=== PATIENT | male | born 1960 | race Caucasian/White ===

== ENCOUNTER 2016-10-08 04:55 | Emergency (ER) | payer OTHER ==
[2016-10-08] MEDS ORDERED: BENADRYL 50 MG/ML IV ONE (05:10)
[2016-10-08] MEDS ORDERED: MORPHINE SULFATE 10 MG/ML IV ONE (05:10)
[2016-10-08] MEDS ORDERED: Sodium Chloride 0.9% 1000 ML 1,000 ML IV STA (05:10)
[2016-10-08] MEDS ORDERED: BENADRYL 50 MG/ML ONE (05:13)
[2016-10-08] MEDS ORDERED: Sodium Chloride 0.9% 1000 ML 1,000 ML ONE (05:14)
[2016-10-08] MEDS ORDERED: MORPHINE SULFATE 10 MG/ML ONE (05:14)
[2016-10-08 05:19] LABS: BASOPHIL % 0.5 % (0.0-0.4); Eosinophil % 3.1 % (0.00-5.0); Lymphocytes % 31.2 % (24.0-44.0); Mean Cell Volume 92.7 fl (78-100); Mean Corpuscular Hemoglobin 31.1 pg (26-32); Mean Platelet Volume 10.2 fl (6-9.5); Monocytes % 8.2 % (0.0-12.0); Platelet Count 275 K/mm3 (150-450); Red Blood Count 4.63 M/mm3 (4.1-5.6); Red Cell Distribution Width 12.7 % (11.5-14.0); White Blood Count 11.1 K/mm3 (4.0-10.5)
--- NOTE | 2016-10-08 05:25 | ERPHSYRPT ---
- History of Present Illness Time Seen by Provider: 10/08/16 04:57 Historian: patient Patient Subjective Stated Complaint: Pt states since around noon yesterday he has been having left lower abdominal pain and it feels like he has to pee but does not empty his bladder. Triage Nursing Assessment: Pt alert and oriented x3. skin pink warm and dry. afebrile. denies any n/v. states his abdominal pain comes and goes Physician History: CC: left abd pain hx: 55 y/o patient with hx of high chol and DM and gout. He had sudden sharp intermittent pain in left side of abd. Increased urinary urgency and frequency. No fever or chills. No vomiting. No hx of kidney stone disease in the past. No chest pain. He broke out in sweat. Unable to sleep well due to the pain. Timing/Duration: yesterday (11AM) Severity of Pain-Max: severe Severity of Pain-Current: severe Allergies/Adverse Reactions: No Known Drug Allergies Allergy (Unverified 10/08/16 05:07) Home Medications: Metformin HCl 1000 mg [Glucophage 1000 MG] 1,000 mg PO BID 07/28/15 [History] Allopurinol 300 mg [Zyloprim 300 mg] 300 mg PO DAILY 10/08/16 [History] Rosuvastatin Calcium 10 mg PO HS 10/08/16 [History] Hx Tetanus, Diphtheria Vaccination/Date Given: Yes (5 years ago) Hx Influenza Vaccination/Date Given: No Hx Pneumococcal Vaccination/Date Given: No - Review of Systems Constitutional: Malaise, No Fever, No Chills Eyes: No Symptoms Ears, Nose, & Throat: No Symptoms Respiratory: No Cough, No Dyspnea Cardiac: No Chest Pain Abdominal/Gastrointestinal: Abdominal Pain (left sided), No Nausea, No Vomiting , No Diarrhea Genitourinary Symptoms: Flank Pain (left), No Dysuria, No Testicle Pain Musculoskeletal: Back Pain (left) Skin: No Rash Neurological: No Focal Weakness, No Headache, No Parasthesia All Other Systems: Reviewed and Negative - Past Medical History Pertinent Past Medical History: Yes Neurological History: No Pertinent History ENT History: No Pertinent History Cardiac History: High Cholesterol Respiratory History: No Pertinent History Endocrine Medical History: Diabetes Type II Musculoskeletal History: No Pertinent History GI Medical History: No Pertinent History History: No Pertinent History Psycho-Social History: No Pertinent History Male Reproductive Disorders: No Pertinent History Other Medical History: Gout - Past Surgical History Past Surgical History: Yes Gastrointestinal: Hernia Repair - Social History Smoking Status: Former smoker Exposure to second hand smoke: Yes Drug Use: none Patient Lives Alone: No - Nursing Vital Signs Nursing Vital Signs: Initial Vital Signs Temperature 97.7 F Temperature Source Oral Pulse Rate 77 Respiratory Rate 14 Blood Pressure [Right Arm] 127/83 Pain Intensity 1 - Physical Exam General Appearance: alert, obese, other (uncomfortable appearing) Eye Exam: PERRL/EOMI Ears, Nose, Throat Exam: normal ENT inspection, moist mucous membranes Neck Exam: normal inspection, non-tender, supple Respiratory Exam: normal breath sounds, lungs clear Cardiovascular Exam: regular rate/rhythm Gastrointestinal/Abdomen Exam: soft, tenderness (left), No distention, No mass, No guarding Male Genitalia Exam: normal genitalia, No testicular tenderness Back Exam: normal inspection, normal range of motion Extremity Exam: normal inspection, normal range of motion Neurologic Exam: alert, oriented x 3, 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, 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, sensation nml, No motor deficits Skin Exam: warm, dry, pale SpO2 Interpretation: normal SpO2: 96 - Course Nursing assessment & vital signs reviewed: Yes - CT Exams abd/pelvis CT Interpretation: Tele-radiologist Report (left hydro, left distal ureteral stone) Ordered Tests: Active Orders 24 hr Category Date Time Status IV Insertion STAT Care 10/08/16 05:10 Active ABDOMEN AND PELVIS W/0 CONTRAS [CT] Stat Exams 10/08/16 05:10 Taken BMP Stat Lab 10/08/16 05:16 Completed CBC W DIFF Stat Lab 10/08/16 05:16 Completed Lactic Acid Stat Lab 10/08/16 05:10 Completed UA W/ MICROSCOPIC Stat Lab 10/08/16 05:30 Completed Uric Acid Stat Lab 10/08/16 05:31 Completed Medication Summary Discontinued Medications Generic Name Dose Route Start Last Admin Trade Name Freq PRN Reason Stop Dose Admin Diphenhydramine HCl 25 mg 10/08/16 05:10 10/08/16 05:15 Benadryl 50 Mg/Ml IV 10/08/16 05:11 25 mg STAT ONE Administration Diphenhydramine HCl Confirm 10/08/16 05:13 Benadryl 50 Mg/Ml Administered 10/08/16 05:14 Dose 50 mg .ROUTE .STK-MED ONE Sodium Chloride 1,000 mls @ 999 mls/hr 10/08/16 05:10 10/08/16 05:15 Sodium Chloride 0.9% 1000 Ml IV 10/08/16 06:10 999 mls/hr .Q1H1M STA Administration Sodium Chloride Confirm 10/08/16 05:14 Sodium Chloride 0.9% 1000 Ml Administered 10/08/16 05:15 Dose 1,000 mls @ ud .ROUTE .STK-MED ONE Morphine Sulfate 5 mg 10/08/16 05:10 10/08/16 05:15 Morphine Sulfate 10 Mg/Ml IV 10/08/16 05:11 5 mg STAT ONE Administration Morphine Sulfate Confirm 10/08/16 05:14 Morphine Sulfate 10 Mg/Ml Administered 10/08/16 05:15 Dose 10 mg .ROUTE .STK-MED ONE Lab/Rad Data: Laboratory Result Diagrams 10/08/16 05:16 10/08/16 05:16 Laboratory Results 10/08/16 10/08/16 10/08/16 Range/Units 05:31 05:30 05:16 WBC (4.0-10.5) K/mm3 RBC (4.1-5.6) M/mm3 Hgb (12.5-18.0) gm/dl Hct (42-50) % MCV (78-100) fl MCH (26-32) pg MCHC (32-36) g/dl RDW (11.5-14.0) % Plt Count (150-450) K/mm3 MPV (6-9.5) fl Gran % (36.0-66.0) % Lymphocytes % (24.0-44.0) % Monocytes % (0.0-12.0) % Eosinophils % (0.00-5.0) % Basophils % (0.0-0.4) % Basophils # (0-0.4) Sodium 137 (136-145) mEq/L Potassium 3.9 (3.5-5.1) mEq/L Chloride 104 (98-107) mEq/L Carbon Dioxide 23.4 (21-32) mEq/L Anion Gap 13.6 (5-15) MEQ/L BUN 17 (9-20) mg/dL Creatinine 1.14 (0.55-1.30) mg/dl Estimated GFR > 60 ML/MIN Glucose 172 H (70-110) MG/DL Lactic Acid (0.4-2.0) Uric Acid 6.6 (3.5-7.2) mg/dL Calcium 9.4 (8.5-10.1) mg/dL Ur Collection Type CLEAN CATCH Urine Color YELLOW (YELLOW) Urine Appearance CLEAR (CLEAR) Urine pH 5.0 (5-6) Ur Specific [place] >=1.030 (1.005-1.025) Urine Protein NEGATIVE (Negative) Urine Glucose (UA) NEGATIVE (NEGATIVE) mg/dL Urine Ketones NEGATIVE (NEGATIVE) Urine Nitrite NEGATIVE (NEGATIVE) Urine Bilirubin NEGATIVE (NEGATIVE) Urine Urobilinogen 0.2 (0-1) mg/dL Urine WBC (Auto) NEGATIVE (NEGATIVE) Urine RBC (Auto) SMALL (0-5) Christian/ul Urine Microscopic RBC 2-5 (0-2) /HPF Urine Microscopic WBC 0-2 (0-5) /HPF Ur Epithelial Cells FEW (FEW) /HPF Urine Bacteria FEW (NEGATIVE) /HPF Urine Mucus SLIGHT (NEGATIVE) /HPF Specimen Received 10/08/16 0530 10/08/16 10/08/16 Range/Units 05:16 05:10 WBC 11.1 H (4.0-10.5) K/mm3 RBC 4.63 (4.1-5.6) M/mm3 Hgb 14.4 (12.5-18.0) gm/dl Hct 42.9 (42-50) % MCV 92.7 (78-100) fl MCH 31.1 (26-32) pg MCHC 33.6 (32-36) g/dl RDW 12.7 (11.5-14.0) % Plt Count 275 (150-450) K/mm3 MPV 10.2 H (6-9.5) fl Gran % 57.0 (36.0-66.0) % Lymphocytes % 31.2 (24.0-44.0) % Monocytes % 8.2 (0.0-12.0) % Eosinophils % 3.1 (0.00-5.0) % Basophils % 0.5 (0.0-0.4) % Basophils # 0.06 (0-0.4) Sodium (136-145) mEq/L Potassium (3.5-5.1) mEq/L Chloride (98-107) mEq/L Carbon Dioxide (21-32) mEq/L Anion Gap (5-15) MEQ/L BUN (9-20) mg/dL Creatinine (0.55-1.30) mg/dl Estimated GFR ML/MIN Glucose (70-110) MG/DL Lactic Acid 1.8 (0.4-2.0) Uric Acid (3.5-7.2) mg/dL Calcium (8.5-10.1) mg/dL Ur Collection Type Urine Color (YELLOW) Urine Appearance (CLEAR) Urine pH (5-6) Ur Specific [place] (1.005-1.025) Urine Protein (Negative) Urine Glucose (UA) (NEGATIVE) mg/dL Urine Ketones (NEGATIVE) Urine Nitrite (NEGATIVE) Urine Bilirubin (NEGATIVE) Urine Urobilinogen (0-1) mg/dL Urine WBC (Auto) (NEGATIVE) Urine RBC (Auto) (0-5) Christian/ul Urine Microscopic RBC (0-2) /HPF Urine Microscopic WBC (0-5) /HPF Ur Epithelial Cells (FEW) /HPF Urine Bacteria (NEGATIVE) /HPF Urine Mucus (NEGATIVE) /HPF Specimen Received - Progress Progress Note: 10/08/16 05:24 Pt voided small amount. Post void sono shows empty bladder. Left sided hydronephrosis. Will get CT to assess for stone disease. Counseled pt/family regarding: lab results, diagnosis, need for follow-up, rad results - Departure Time of Disposition: 06:36 Departure Disposition: Home Clinical Impression: Renal colic on left side, Left ureteral stone Condition: Stable Critical Care Time: No Referrals: SCOT RODRIGUEZ MD [Primary Care Provider] - Instructions: Kidney Stones Additional Instructions: Return for fever, uncontrolled pain, or recurrent vomiting. Rx norco for pain- no driving or operating machinery. Strain urine for stone. Follow up with Dr Trejo Monday. Prescriptions: Hydrocodone Bit/Acetaminophen [[place] 5-325 Tablet] 1 each PO Q6H PRN PRN #15 tablet PRN Reason: Pain
[2016-10-08 05:38] LABS: ANION GAP 13.6 MEQ/L (5-15); BLOOD UREA NITROGEN 17 mg/dL (9-20); CHLORIDE 104 mEq/L (98-107); Carbon Dioxide 23.4 mEq/L (21-32); Glucose 172 MG/DL (70-110); Potassium 3.9 mEq/L (3.5-5.1); SODIUM 137 mEq/L (136-145)
[2016-10-08 05:42] LABS: Bacteria FEW /HPF (NEGATIVE); COMPLETE URINE MICROSCOPIC? YES; Collection Type CLEAN CATCH; Epithelial Cells FEW /HPF (FEW); Mucus SLIGHT /HPF (NEGATIVE); WBC 0-2 /HPF (0-5)
[2016-10-08] MEDS ORDERED: MORPHINE SULFATE 4 MG INJ IV ONE (06:35)
[2016-10-08] MEDS ORDERED: MORPHINE SULFATE 4 MG INJ ONE (06:39)
[2016-10-08 07:11] VITALS: BP 124/85; PULSE 87; O2SAT 95
--- NOTE | 2016-10-08 08:32 | XRAY ---
Indication: Left lower quadrant abdominal pain. Renal stone. Multiple contiguous axial images obtained through the abdomen and pelvis without contrast using renal stone protocol. Comparison: None. Lung bases demonstrates minimal bibasilar atelectasis/scarring. Heart is not enlarged. 3-4 mm distal left ureteral calculus approximately 1-2 cm proximal to the UVJ. Proximal left ureter is slightly prominent and there is mild hydronephrosis with minimal perinephric stranding consistent with partial obstructive uropathy. No free fluid. There are 3 nonobstructing right renal calculi largest measuring 10 mm. Noncontrasted stomach and bowel loops appear nonobstructed. Mild diffuse scattered colonic fecal debris throughout and minimal sigmoid diverticulosis. Normal appendix. No free air. There are scattered centimeter/subcentimeter mesenteric nodes, possible adenitis. Fatty liver and 13 cm splenomegaly. Remaining liver, gallbladder, pancreas, spleen, adrenal glands, kidneys, ureters, and bladder appear unremarkable for noncontrast exam. Minimal aortoiliac calcifications without AAA. Osseous structures intact. Tiny fatty umbilical hernia. Impression: 1. 3-4 mm distal left ureteral calculus producing partial obstruction. Nonobstructing right renal calculi. 2. Mild fecal stasis without obstruction. Sigmoid diverticulosis without diverticulitis. 3. Scattered tiny mesenteric nodes, possible mesenteric adenitis. 4. Fatty liver and splenomegaly. Comment: Preliminary interpretation was made by [facility]. No critical discrepancy. CTDI 28.13
== END 2016-10-08 07:12 | disposition home or self-care (01) ==
LOC: ED 04:55
DX: N23 Unspecified renal colic (principal); N20.1 Calculus of ureter; R10.32 Left lower quadrant pain; E78.00 Pure hypercholesterolemia, unspecified; E11.9 Type 2 diabetes mellitus without complications; M10.9 Gout, unspecified; R39.15 Urgency of urination; R35.0 Frequency of micturition
CPT/HCPCS: 36000; 36415; 74176; 80048; 81000; 83605; 84550; 85025; 96374; 96375; 96376; 99284; J1200; J2270

== ENCOUNTER 2024-03-15 13:34 | Emergency (ER) | payer BC ==
[2024-03-15 13:51] VITALS: TEMP 98.6
[2024-03-15 14:35] VITALS: O2SAT 96
--- NOTE | 2024-03-15 15:05 | ERPHSYRPT ---
- History of Present Illness Time Seen by Provider: 03/15/24 14:05 Source: patient Exam Limitations: no limitations Patient Subjective Stated Complaint: pt had been having right sided flank pain of and on for the past weeks and went to [facility] yesterday and had a CT and was told that he had 2 kidney stones Triage Nursing Assessment: Pt brought self to the ER, hypertensive, rates pain prior to taking the George as 8/10, pulses normal, skin n/w/d, denies issues with urinating, denies abdominal pain, no difficulty breathing, doesn't appear to be in any distress Physician History: This is a 63-year-old white male patient has a history of diabetes, hyperlipidemia and gout 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 The pain went away then returned on the Monday prior to this examination/evaluation. The pain had not subsided and therefore he went to [facility] which is an outpatient clinic in [facility] on 03/14/2024. I reviewed those records. Patient had an abdominal x-ray which showed no bony abnormalities. There was evidence of bilateral nephrolithiasis and possible right ureterolithiasis. They recommended a CT scan of the abdomen pelvis. I reviewed and interpreted his blood/lab work which did not show anything acute or emergent. He did not have a urinalysis performed. His pain is better today because he took a George 5/325 tablet approximately 1300 prior to arrival to today's visit. Timing/Duration: week(s) (1), worse Activites at Onset: none Quality: sharpness, stabbing Onset Location: right flank Severity of Pain-Max: moderate Severity of Pain-Current: mild Modifying Factors: Improves With: nothing Associated Symptoms: No abdominal pain, No nausea, No vomiting, No urinary frequency, No loss of bladder control, No lower back pain Sexual intercourse history: non-contributory Allergies/Adverse Reactions: No Known Drug Allergies Allergy (Verified 03/15/24 13:51) Home Medications: Metformin HCl 1000 mg [Glucophage 1000 MG] 1,000 mg PO BID 07/28/15 [History] Allopurinol 300 mg [Zyloprim 300 mg] 300 mg PO DAILY 10/08/16 [History] Rosuvastatin Calcium 20 mg PO HS 10/08/16 [History] Semaglutide [Ozempic] 1 mg SQ WEEKLY 03/15/24 [History] Hx Tetanus, Diphtheria Vaccination/Date Given: Yes (5 years ago) Hx Influenza Vaccination/Date Given: No Hx Pneumococcal Vaccination/Date Given: No Travel Risk - International Travel Have you traveled outside of the country in past 3 weeks: No - Emerging Infectious Disease Are you exhibiting symptoms associated with any current EIDs: No - Past Medical History Pertinent Past Medical History: Yes Neurological History: No Pertinent History ENT History: No Pertinent History Cardiac History: High Cholesterol Respiratory History: No Pertinent History Endocrine Medical History: Diabetes Type II Musculoskeletal History: Fractures GI Medical History: No Pertinent History History: No Pertinent History Psycho-Social History: No Pertinent History Male Reproductive Disorders: No Pertinent History Other Medical History: GOUT, EAR DRUM RUPTURE (RINGING IN EAR 15-16 YEARS), CRESPO ON RIGHT UPPER LEG (7 YEARS) AND RIGHT LOWER ARM (10+ YEARS AGO), LEFT ANKLE FRACTURE (20 YEARS AGO) - Past Surgical History Past Surgical History: Yes Gastrointestinal: Hernia Repair - Social History Smoking Status: Former smoker Exposure to second hand smoke: Yes Drug Use: none Patient Lives Alone: No - Social Determinants of Health Will the patient participate in the screening: Yes Do you worry about a steady place to live?: No Do you have any problems with any of the following?: No known problems In the past 12 months,have you had to go without utilities?: No Transportation Issues: No Has anyone in your support network made you feel unsafe?: No Have you or anyone in your house had to go without enough: No - Review of Systems Constitutional: No Symptoms Eyes: No Symptoms Ears, Nose, & Throat: No Symptoms Respiratory: No Symptoms Cardiac: No Symptoms Abdominal/Gastrointestinal: No Symptoms Genitourinary Symptoms: Flank Pain (Right side) Musculoskeletal: No Symptoms Skin: No Symptoms Neurological: No Symptoms Psychological: No Symptoms Endocrine: No Symptoms Hematologic/Lymphatic: No Symptoms Immunological/Allergic: No Symptoms All Other Systems: Reviewed and Negative - Nursing Vital Signs Nursing Vital Signs: Initial Vital Signs Temperature 98.6 F 03/15/24 13:41 Pulse Rate 92 H 03/15/24 13:41 Blood Pressure 172/89 03/15/24 13:41 O2 Sat by Pulse Oximetry 95 03/15/24 13:41 Pain Scale Pain Intensity 8 - Physical Exam General Appearance: no apparent distress, alert Eye Exam: PERRL/EOMI, eyes nml inspection Ears, Nose, Throat Exam: normal ENT inspection, moist mucous membranes Neck Exam: normal inspection, non-tender, supple, full range of motion Respiratory Exam: normal breath sounds, lungs clear, airway intact, No chest tenderness, No respiratory distress Cardiovascular Exam: regular rate/rhythm, normal heart sounds, normal peripheral pulses Gastrointestinal/Abdomen Exam: soft, normal bowel sounds, No tenderness Rectal Exam: not done Back Exam: normal inspection, normal range of motion, CVA tenderness (Right side), No vertebral tenderness Extremity Exam: normal inspection, normal range of motion, pelvis stable Neurologic Exam: alert, oriented x 3, 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0 (4.6-8.0) Ur Specific [place] 1.020 (1.005-1.030) Urine Protein Negative (Negative) Urine Glucose (UA) Negative (Negative) mg/dL Urine Ketones Negative (Negative) Urine Blood Negative (Negative) Urine Nitrite Negative (Negative) Urine Bilirubin Negative (Negative) Urine Urobilinogen 0.2 (0.2) mg/dL Ur Leukocyte Esterase Negative (Negative) U Hyaline Cast (Auto) NONE SEEN (0-2) /LPF Urine Microscopic RBC 0-2 (0-5) /HPF Urine Microscopic WBC 3-5 (0-5) /HPF Ur Epithelial Cells None Seen (None Seen) /HPF Urine Bacteria None Seen (None Seen) /HPF Urine Culture Reflexed NO (NO) - Progress Progress: improved, pain not gone completely Progress Note: 03/15/24 14:59 My medical decision making and the assignment of moderate complexity to this patient's medical issue today is based on review of the patient's past medical history, review the patient's medication list, reviewed patient drug allergy list, history present illness and physical findings on examination. The workup in this patient includes placement of intravenous line, urinalysis and CT scan of the abdomen pelvis without contrast. I interpreted the outpatient studies that were performed and these are the only 2 studies I feel is necessary in this patient. Differential diagnosis includes but is not limited to ureterolithiasis, urinary tract infection, or both, nephrolithiasis, back pain/muscle skeletal pain 03/15/24 16:09 I interpreted the urinalysis result. There is no evidence of any infection. The CT scan of the abdomen pelvis without contrast was interpreted by the radiologist and I reviewed the impression. The impression states right hydroureteral nephrosis. Right mid ureteral stone 7 x 8 x 9 mm. Stranding of the right perirenal fat planes. Bilateral renal stones. Mild stranding of the left perirenal fat planes. Bilateral fat-containing inguinal hernias. Counseled pt/family regarding: lab results, diagnosis, need for follow-up, rad results Medical Desision Making - Diagnostic Testing Diagnostic test were ordered, analyzed, and reviewed by me: Yes Radiological Interpretation: Reviewed by me, Teleradiologist Report - Risk of complications The pt has a mod risk of morbidity or mortality based on: Need for prescription drug management - Departure Departure Disposition: Home Clinical Impression: Right ureteral stone, Bilateral nephrolithiasis, Bilateral inguinal hernia, Obstructive uropathy Condition: Stable Critical Care Time: No Referrals: DOCTOR,NO FAMILY [Primary Care Provider] - Follow up/PCP as directed Additional Instructions: Drink plenty of fluids. Take your medications as prescribed. If your pain suddenly worsens and is not controlled with your pain medication regimen, you can always come to our facility knowing we do not have urology as we will see you and help manage your pain. Your other options are to go to [facility] in [facility], [facility] in [facility] and [facility] in [facility] where there are urology physicians on staff. Prescriptions: Tamsulosin HCl 0.4 mg [Flomax 0.4 MG] 0.4 mg PO DAILY #7 cap
[2024-03-15 15:44] LABS: Appearance Clear (Clear); Bacteria None Seen /HPF (None Seen); Bilirubin Negative (Negative); Blood Negative (Negative); Epithelial Cells None Seen /HPF (None Seen); Glucose, Urine Negative (Negative); Hyaline Casts NONE SEEN /LPF (0-2); Ketones Negative (Negative); Leukocyte Esterase Negative (Negative); Nitrite Negative (Negative); Protein,Urine Dip Negative (Negative); RBC 0-2 /HPF (0-5); Urobilinogen 0.2 mg/dL (0.2)
--- NOTE | 2024-03-15 15:55 | XRAY ---
CLINICAL HISTORY: Right flank pain COMPARISON: No prior studies available for comparison. TECHNIQUE: Non-contrast CT of the abdomen and pelvis was performed, with the following protocol: axial images, and reconstructed coronal and sagittal images. One of the following dose reduction techniques was utilized for this exam: Automated exposure control, adjustment of the mA and/or kV according to patient size, and use of iterative reconstruction. FINDINGS: Abdomen: Liver: Enlarged in size (19 cm) with fatty low CT density. No focal lesions, cysts, or masses were identified. Gallbladder and Biliary System: The gallbladder is normal in size and shape. No wall thickening, pericholecystic fluid, or gallstones were identified. Pancreas: Pancreatic head, body, and tail are visualized and appear normal in size and density. No pancreatic masses or calcifications were noted. Spleen: Normal in size, shape, and density. No splenic lesions or masses were identified. Kidneys and Adrenal Glands: Both kidneys are normal in size, shape, and position. Cortical thickness is within normal limits. There is right hydro-ureteronephrosis owing to right mid-ureteric stone, opposite the right transverse process of L4, measures 7x8x9 mm & 1438 HU. Subsequent stranding of the right preirenal fat planes. Right renal lower calyceal stone measures [id number] mm & 1450 HU. Left upper calyceal stone measures 5 mm & 440 HU. Bilateral renal gravels are also noted. Milder stranding of the left preirenal fat planes. No left hydronephrosis. Adrenal glands are unremarkable. Abdominal Aorta and Vessels: Atherosclerotic vascular calcifications. Pelvis: Urinary Bladder: Normal in contour and wall thickness. No intraluminal lesions. Prostate: Enlarged in size with calcifications and normal contour. No masses or abnormal thickening. Seminal Vesicles: Normal appearance without abnormal enlargement or mass. Peritoneal and Retroperitoneal Structures: No free fluid or abnormal fluid collections were identified within the abdomen or pelvis. No lymphadenopathy was noted. Bilateral inguinal hernias containing fat. Bowel: Mild hiatus hernia with widened hiatus foramen measures 18 mm in width and suggested reflux esophagitis. The visualized bowel loops are normal in caliber and appearance. No evidence of bowel obstruction or wall thickening. The appendix is unremarkable. Bones and Soft Tissues: Pelvic bones and soft tissues are unremarkable. No fractures or abnormal masses were identified. IMPRESSION: 1. Right hydro-ureteronephrosis owing to right mid ureteric stone, opposite the right transverse process of L4, measures 7x8x9 mm & 1438 HU. Subsequent stranding of the right perirenal fat planes. 2. Bilateral renal stones and mild stranding of the left perirenal fat planes. 3. Enlarged prostate with calcifications and normal contour. No masses or abnormal thickening. 4. Fatty hepatomegaly. 5. Mild hiatus hernia with widened hiatus foramen measures 18 mm in width and suggested reflux esophagitis. 6. Bilateral inguinal hernias containing fat. 7. Atherosclerotic vascular calcifications. Clinical correlation is recommended for further evaluation of [specific findings or incidental findings]. Electronically Signed by: Alyssa Edmondson MD. (03/15/2024 15:51:13 EDT)
[2024-03-15 16:11] VITALS: BP 137/86; PULSE 86; RESP 18
[2024-03-15] MEDS ORDERED: Flomax 0.4 MG ONE (16:17)
[2024-03-15] MEDS: Flomax 0.4 MG PO ONE (16:19)
== END 2024-03-15 16:23 | disposition home or self-care (01) ==
LOC: ED 13:34
DX: N13.2 Hydronephrosis with renal and ureteral calculous obstruction (principal); Z87.442 Personal history of urinary calculi; N13.9 Obstructive and reflux uropathy, unspecified; K40.20 Bilateral inguinal hernia, without obstruction or gangrene, not specified as recurrent; E11.9 Type 2 diabetes mellitus without complications; E78.5 Hyperlipidemia, unspecified; Z79.84 Long term (current) use of oral hypoglycemic drugs; Z79.85 Long-term (current) use of injectable non-insulin antidiabetic drugs; Z79.899 Other long term (current) drug therapy
CPT/HCPCS: 74176; 81001; 99283; A9270-GY